=== PATIENT | male | born 1995 | race American Indian/Alaskan Native ===

== ENCOUNTER 2018-05-21 09:43 | Emergency (ER) | payer OTHER ==
--- NOTE | 2018-05-21 10:47 | Emergency Department Report ---
Vomiting/Diarrhea - HPI Chief Complaint: Abdominal Pain Stated Complaint: DIZZY,VOMITING Time Seen by Provider: 05/21/18 10:21 Duration: Today Severity: severe Nausea/Vomiting Severity: Severe Diarrhea Severity: None Pain Severity: None Symptoms: Yes Watery Diarrhea, Yes Recent Unusual Foods, No Bloody diarrhea, No Fever, No Able to Tolerate Fluids, No Recent Untreated Water, No Recent use of Antibiotics, No Family w/ Similar Symptoms, No Contacts w/ Similar Symptoms, No Rash, No Hematuria, No Recent URI Symptoms Other History: 23-year-old male presents to emergency room with complaints of nausea and vomiting 7 hours. He states he was nauseated 3 AM this morning and threw up at 6 AM. Patient states he felt better after throwing up. Patient states he had a bout of abdominal pain while throwing up only. Patient states the abdominal pain has resolved. Patient denies fever and chills. Patient denies diaphoresis. Patient denies chest pain shortness of breath. Patient denies abdominal pain at this time. Patient denies diarrhea. Patient denies sick contacts. Patient denies eating any food. Patient states he does eat out a lot. ED Review of Systems ROS: Stated complaint: DIZZY,VOMITING Other details as noted in HPI Comment: All other systems reviewed and negative Constitutional: denies: chills, fever Eyes: denies: eye pain, eye discharge, vision change ENT: denies: ear pain, throat pain Respiratory: denies: cough, shortness of breath, wheezing Cardiovascular: denies: chest pain, palpitations Endocrine: no symptoms reported Gastrointestinal: nausea, vomiting. denies: abdominal pain, diarrhea Genitourinary: denies: urgency, dysuria Musculoskeletal: denies: back pain, joint swelling, arthralgia Skin: denies: rash, lesions Neurological: denies: headache, weakness, paresthesias Psychiatric: denies: anxiety, depression Hematological/Lymphatic: denies: easy bleeding, easy bruising ED Past Medical Hx - Past Medical History Previous Medical History?: No - Surgical History Past Surgical History?: No - Family History Family history: no significant - Social History Smoking Status: Former Smoker Substance Use Type: None - Medications Home Medications: Home Medications Medication Instructions Recorded Confirmed Last Taken Type Ondansetron [Zofran Odt] 4 mg PO Q8HR PRN #20 tab.rapdis 05/21/18 Unknown Rx Vomiting Diarrhea Exam - Exam General: Vital signs noted. No distress. Alert and acting appropriately. HEENT: Yes Moist Mucous Membranes, No Pharyngeal Erythema, No Pharyngeal Exudates, No Rhinorrhea, No Conjuctival Injection, No Frontal Tenderness, No Maxillary Tenderness Neck: No Adenopathy, No Rigidity Lungs: Yes Clear Lung Sounds, Yes Good Air Exchange, No Wheezes, No Stridor, No Cough, No Nasal Flaring, No Retractions, No Use of Accessory Muscles Heart exam: Regular: Yes, Murmur: No, Tachycardia: No Abdomen: Tenderness: No, Peritoneal Signs: No, Distention: No, Hyperactive Bowel sounds: No Skin exam: Rash: No, Edema: No, Normal turgor: Yes Neurologic: Alert and oriented, no deficits. Musculoskeletal: Unremarkable. ED Course Vital Signs 05/21/18 10:09 Temperature 97.7 F Pulse Rate 64 Respiratory 18 Rate Blood Pressure 131/90 O2 Sat by Pulse 99 Oximetry - Reevaluation(s) Reevaluation #1: We'll place an IV and give patient a bolus of fluids. Patient is tolerating sips of water. 05/21/18 13:14 Patient tolerated fluids well. Patient's symptoms have improved. Patient tolerating by mouth intake. Patient instructed to eat a BRAT diet. Patient given discharge and return to ER instructions. Patient voiced understanding of all instructions. 05/21/18 15:19 ED Medical Decision Making - Lab Data Result diagrams: 05/21/18 10:57 05/21/18 10:57 - Medical Decision Making Patient is a 23-year-old male that presents emergency room with nausea and vomiting. Patient found to have gastroenteritis. Patient given Zofran and responded well. Patient's labs are unremarkable. Discussed plan of care with patient. Patient agrees with plan of care. Patient given discharge instructions. Patient given instructions on how to take medications. Patient given return to ER instructions. Patient voiced understanding of all instructions. - Differential Diagnosis gastritis. Nausea, vomiting. Food toxicity. Gastroenteritis Critical care attestation.: If time is entered above; I have spent that time in minutes in the direct care of this critically ill patient, excluding procedure time. ED Disposition Clinical Impression: Dehydration, Gastroenteritis N&V (nausea and vomiting) Qualifiers: Vomiting type: unspecified Vomiting Intractability: non-intractable Qualified Code(s): R11.2 - Nausea with vomiting, unspecified Disposition: DC-01 TO HOME OR SELFCARE Is pt being admited?: No Does the pt Need Aspirin: No Condition: Stable Instructions: Gastroenteritis (ED), Acute Nausea and Vomiting (ED) Additional Instructions: Patient to follow up with primary care in 3-5 days. Patient to return to ER if condition worsens. Patient to increase water. Patient BRAT diet. Patient to rest. Patient to take ibuprofen and Tylenol when necessary for pain and fever. Prescriptions: Ondansetron [Zofran Odt] 4 mg PO Q8HR PRN #20 tab.rapdis PRN Reason: Nausea And Vomiting Referrals: PRIMARY CARE, [Primary Care Provider] - 3-5 Days Time of Disposition: 15:20
[2018-05-21] MEDS ORDERED: ZOFRAN ODT PO ONE (10:52)
[2018-05-21 11:19] LABS: Basophils % (Auto) 0.5 % (0.0-1.8); Eosinophils % (Auto) 0.1 % (0.0-4.3); Hematocrit 50.1 % (35.5-45.6); Hemoglobin 17.2 gm/dl (11.8-15.2); Lymphocytes # (Auto) 1.2 K/mm3 (1.2-5.4); Lymphocytes % (Auto) 18.4 % (13.4-35.0); Mean Corpuscular HGB Conc 34 % (32-34); Mean Corpuscular Hemoglobin 31 pg (28-32); Mean Corpuscular Volume 90 fl (84-94); Monocytes # (Auto) 0.2 K/mm3 (0.0-0.8); Monocytes % (Auto) 3.8 % (0.0-7.3); Platelet Count 215 K/mm3 (140-440); Red Blood Count 5.55 M/mm3 (3.65-5.03); Red Cell Distribution Width 12.9 % (13.2-15.2)
[2018-05-21 11:34] LABS: Alanine Aminotransferase 23 units/L (7-56); Albumin 4.7 g/dL (3.9-5); BUN/Creatinine Ratio 16; Blood Urea Nitrogen 11 mg/dL (9-20); Calcium 9.4 mg/dL (8.4-10.2); Hemolysis Index 28
[2018-05-21] MEDS ORDERED: NACL 0.9% 1000 ML 1,000 ML IV ONE (13:13)
[2018-05-21 16:05] VITALS: BP 129/85
== END 2018-05-21 16:04 | disposition home or self-care (01) ==
LOC: ED 09:43
DX: K52.9 Noninfective gastroenteritis and colitis, unspecified (principal); E86.0 Dehydration; Z87.891 Personal history of nicotine dependence
CPT/HCPCS: 36415; 80053; 85025; 96360; 99284; J7030; Q0162